=== PATIENT | female | born 1950 | race Caucasian/White ===

== ENCOUNTER → 2017-02-25 12:30 | Outpatient (CLI) | payer MEDICARE | END | disposition home or self-care (01) | LOC: D.RAD 12:30 | DX: T17.928A Food in respiratory tract, part unspecified causing other injury, initial encounter (principal); X58.XXXA Exposure to other specified factors, initial encounter; Y93.89 Activity, other specified; Y92.89 Other specified places as the place of occurrence of the external cause ==

== ENCOUNTER → 2017-03-24 10:47 | Outpatient (CLI) | payer MEDICARE ==
[2017-03-25 11:17] LABS: IMMUNOGLOBULIN E 84 IU/mL (0-100)
== END | disposition home or self-care (01) ==
LOC: D.RT 10:47
PROVIDERS: Internal Medicine Pulmonary Disease
DX: J44.9 Chronic obstructive pulmonary disease, unspecified (principal)

== ENCOUNTER → 2017-04-13 14:18 | Outpatient (CLI) | payer MEDICARE | END | disposition home or self-care (01) | LOC: D.MAMMO 11:00 | DX: Z12.31 Encounter for screening mammogram for malignant neoplasm of breast (principal) ==

== ENCOUNTER → 2017-06-30 08:22 | Outpatient (CLI) | payer MEDICARE ==
[2017-06-30 09:15] LABS: CREATININE - SERUM 0.7 mg/dL (0.6-1.3)
== END | disposition home or self-care (01) ==
LOC: D.LAB 08:22 → D.CT 09:30
PROVIDERS: Internal Medicine Pulmonary Disease
DX: R91.8 Other nonspecific abnormal finding of lung field (principal)

== ENCOUNTER 2017-09-07 06:35 | Outpatient (CLI) | payer MEDICARE ==
[~2017-09-07 06:35] MED LIST: EFFEXOR XR150 MG PO; IPRAT-ALBUT 0.5-3 ML UPD; SINGULAIR10 MG PO
[2017-09-07 07:38] LABS: HEMATOCRIT 39.5 % (36.0-48.0); HEMOGLOBIN 13.3 g/dL (12-16); MCH 30.8 pg (26.0-34.0); MCHC 33.7 g/dL (31.0-37.0); MCV 91.4 fL (80.0-100.0); MEAN PLATELET VOLUME 9.6 fL (7.4-10.4); RBC 4.32 10x6/uL (4.00-5.40); RDW 12.8 % (11.5-14.5); WBC 4.3 10x3/uL (4.8-10.8)
[2017-09-14 07:54] VITALS: BMI 12.5
== END 2017-09-08 00:01 | disposition home or self-care (01) ==
LOC: D.OPS 06:35 → EDSTATUS 09:45 → D.PAN 09:45 → D.OPS 09-08 00:01
PROVIDERS: Anesthesiology
DX: K63.5 Polyp of colon (principal); Z01.810 Encounter for preprocedural cardiovascular examination; Z01.811 Encounter for preprocedural respiratory examination; Z01.812 Encounter for preprocedural laboratory examination; Z53.9 Procedure and treatment not carried out, unspecified reason

== ENCOUNTER 2017-09-14 06:47 | Day surgery (SDC) | payer MEDICARE ==
[~2017-09-14] VITALS: Ht 236.2 cm; Wt 69.4 kg
--- NOTE | ~2017-09-14 | OP ---
PATIENT NAME: JOSE RAMOS MEDICAL RECORD: [id number] :54 LOCATION:D.OPS ADMISSION DATE: SURGEON: THEODORE WHYTE MD DATE OF OPERATION: 09/14/2017 PREOPERATIVE DIAGNOSIS: Tattooed ascending colon polyp, complex. POSTOPERATIVE DIAGNOSES: Tattooed ascending colon polyp, complex with 2 other sessile polyps, one measuring 1.0 cm in greatest dimension, the other measuring 9 mm in greatest dimension. PROCEDURES: 1. Total colonoscopy to cecum. 2. Hot biopsy forceps polypectomies times 2. 3. Cold endoscopic biopsies of the ascending colon polyp and then ablation of the remaining polypoid base with the argon plasma bioinformatics computer scientist utilizing the right colon setting in the forced mode. SURGEON: Theodore Whyte MD FLAT KNITTER: None. BLOOD LOSS: Minimal. ANESTHESIA: General. COMPLICATIONS: None. The risks, possible complications, and alternatives to the procedure were explained to the patient. She elects to proceed. The discussion specifically included, but was not limited to, bleeding requiring emergency reoperation, infection, endoscopic perforation ,and the probable need for a repeat colonoscopy in the future. ENDOSCOPIC COURSE: The patient was conveyed to the operating room electively on 09/14/2017. General anesthesia was induced by the anesthesia staff. The patient was placed in the Quan position. A digital rectal examination was performed. A colonoscope was inserted through the anus. It was easily advanced to the cecum. Upon withdrawal, I irrigated and aspirated extensively. I dragged the folds. The pullback was greater than a 16-minute pullback. The tattooed polyp was noted. Cold endoscopic biopsies were performed. I then ablated the polypoid base utilizing the argon plasma bioinformatics computer scientist. I then continued to withdraw the endoscope. Two other polyps were noted. These were removed in their entireties utilizing the hot biopsy forceps polypectomy technique. A retroflexed view was obtained in the rectum. I then unretroflexed the scope and removed it under direct vision. I will see the patient in my office in 2-3 weeks. I will plan for her next colonoscopy to take place with the argon plasma bioinformatics computer scientist in 1 year. TRANSINT:[id number] Voice Confirmation ID: [id number] DOCUMENT ID: [id number] OPERATIVE REPORT [id number] JOSE RAMOS ROBERT MD at 1042 CC: LEE TOMLINSON and KAEL SHELL [id number] DICTATION DATE: 09/14/[address] REPORTER: 09/14/17 1106 [facility] 09/14/17 [place] [place] [address]
[2017-09-14 07:44] LABS: HEMATOCRIT 39.9 % (36.0-48.0); HEMOGLOBIN 13.6 g/dL (12-16); MCH 31.1 pg (26.0-34.0); MCHC 34.1 g/dL (31.0-37.0); MCV 91.1 fL (80.0-100.0); MEAN PLATELET VOLUME 9.5 fL (7.4-10.4); RBC 4.38 10x6/uL (4.00-5.40); RDW 13.2 % (11.5-14.5); WBC 3.9 10x3/uL (4.8-10.8)
[2017-09-14 07:54] VITALS: BP 110/71; Ht 236.2 cm; Wt 69.4 kg
== END 2017-09-14 12:25 | disposition home or self-care (01) ==
LOC: D.OPS 06:47 → D.PAN 09:30 → D.OPS 12:25
PROVIDERS: Anesthesiology
DX: D12.2 Benign neoplasm of ascending colon (principal); J44.9 Chronic obstructive pulmonary disease, unspecified; G47.30 Sleep apnea, unspecified; K21.9 Gastro-esophageal reflux disease without esophagitis; F41.8 Other specified anxiety disorders; Z87.891 Personal history of nicotine dependence; Z01.812 Encounter for preprocedural laboratory examination

== ENCOUNTER → 2017-12-08 17:12 | Outpatient (CLI) | payer MEDICARE, MEDICAID ==
[2017-09-14 07:54] VITALS: BMI 12.5
== END | disposition home or self-care (01) ==
LOC: D.MAMMO 14:00
DX: N64.4 Mastodynia (principal)

== ENCOUNTER 2018-11-07 08:35 | Outpatient (CLI) | payer MEDICARE ==
[2017-09-14 07:54] VITALS: BMI 12.5
[2018-11-07 09:04] LABS: HEMATOCRIT 38.4 % (36.0-48.0); HEMOGLOBIN 13.3 g/dL (12-16); MCH 31.2 pg (26.0-34.0); MCHC 34.6 g/dL (31.0-37.0); MCV 90.1 fL (80.0-100.0); MEAN PLATELET VOLUME 9.1 fL (7.4-10.4); RBC 4.26 10x6/uL (4.00-5.40); RDW 13.8 % (11.5-14.5); WBC 5.7 10x3/uL (4.8-10.8)
--- NOTE | 2018-11-07 10:33 | NUR ---
09-PATIENT ARRIVED AND ESCORTED TO THE WAITING ROOM 1000-UPDATED DR WHYTE IS RUNNING ABOUT 1 1/2 HOURS BEHIND DUE TO EMERGENT CASE THIS MORNING. 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 1035-PATIENT DISCHARGED WITH INFO TO CONTACT DR WHYTE TO RESCHEDULE.
== END 2018-11-07 10:35 | disposition home or self-care (01) ==
LOC: D.OPS 08:35 → EDSTATUS 11:00 → D.OPS 11:00
PROVIDERS: Anesthesiology; ATTEND Surgery
DX: Z86.010 Personal history of colon polyps (principal)